=== PATIENT | male | born 1955 | race Caucasian/White ===

== ENCOUNTER → 2021-05-25 | Outpatient (CLI) | payer BC, MEDICARE ==
--- NOTE | 2021-05-25 15:46 | RAD ---
MG OLYA GARCIA, US BREAST LTD RT 05/25/2021 9:22 AM INDICATION: Right retroareolar palpable lump. COMPARISON: None available TECHNIQUE: 2D CC and MLO projections were obtained of each breast. Targeted sonographic evaluation of the breasts were obtained. FINDINGS: Breast density: Category B: There are scattered areas of fibroglandular density. Right breast: There is gynecomastia, more prominent as compared to the contralateral breast. There ar e no suspicious microcalcifications, masses or areas of architectural distortion. Targeted sonographi c evaluation of the right breast was performed in the retroareolar region. 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 No suspicious mass. Left breast: There is gynecomastia. There are no suspicious microcalcifications, masses or areas of a rchitectural distortion. Bilateral mammogram is compared to prior examinations appears unchanged. IMPRESSION: Bilateral gynecomastia, benign findings. BI-RADS category: 2; Benign Recommendations: Clinical management of gynecomastia. Electronically signed by: Alexandra Weston MD (05/25/2021 3:44 PM) [id number]
== END ==
LOC: MAMMO 09:16
PROVIDERS: ATTEND Family Medicine
DX: N63.41 Unspecified lump in right breast, subareolar (principal); N62 Hypertrophy of breast
CPT/HCPCS: 76642; 77066